=== PATIENT | male | born 1965 | race Caucasian/White ===

== ENCOUNTER → 2016-07-21 | Outpatient (CLI) | payer OTHER ==
[~2016-07-21] VITALS: Ht 182.9 cm; Wt 103.0 kg
[~2016-07-21] MED LIST: ASPIR 8181 M1 PO; FLOMAX0.4 MG PO; HYDROCODON-ACE1 EAC5 PO; HYDROCODONE-AP1 EAC6 PO; KEFLEX500 MG PO; MOBIC15 MG PO; PENTASA500 MG PO; PENTOXIFYLLINE400 MG PO; ROBAXIN 750 MG750 M1 PO
--- NOTE | ~2016-07-21 | HPC ---
[facility] [place] [address] PAIN MANAGEMENT CONSULTATION Name: KAUSHIK MCDERMOTT Maninder Room #: REG JOSE Salgado#: [id number] Admission: 07/21/16 Attend Phys: Romaine Richey MD Discharge: Date of : 65 Report #: [id number] THIS REPORT FOR: //name// CC: Maneul Richey DATE OF SERVICE: 07/21/2016 Followup visit for low back pain, spondylitic. No evidence of radiculopathy. 15 minute consultation. The patient returns to pain clinic today to discuss his pain. He has had a couple of weeks of bad pain, but when he made his appointment, this pain is now improving. This is a pretty typical for him. He has episodes of pain that come and go. When the pain is severe, he has been taking multiple doses of ibuprofen, perhaps over 2000 mg a day. This is concerning because he is also on meloxicam perhaps even more concerning because he also has a history of Crohn's disease. His consultation today was spent mostly discussing medication, but we also discussed the importance of exercise and managing chronic back pain. The patient reports he has chronic prostatitis and for that reason, he was placed on meloxicam. He has noticed that this does provide some relief for his pain, but not consistently that is why he has been adding the second nonsteroidal anti-inflammatory drugs. His Crohn's disease fortunately is not flared with the multiple doses of nonsteroidal anti-inflammatory drugs. He has been doing reasonably well with that, although he has frequent diarrhea. This has also been a problem associated with his prostatitis. MEDICATIONS: 81 mg aspirin per day, pentoxifylline 400 mg daily, meloxicam 15 mg daily, Flomax 0.4 mg q. 24 hours, Pentasa 500 mg daily. ALLERGIES: None. PHYSICAL EXAMINATION: GENERAL: He is a pleasant 51-year-old outgoing. VITAL SIGNS: His blood pressure 128/91. BMI is 30.8. MUSCULOSKELETAL: He is able to move from sitting to standing position and ambulate without difficulty, has mild pain with forward flexion and some increasing pain with extension, suggesting a facet mechanism. No pain in his legs with any maneuvers. No radiculopathy. IMPRESSION: 1. Low back pain without radiculopathy, spondylitic likely due to facet arthropathy. 2. Crohn's disease. 3. [place] [address] PAIN MANAGEMENT CONSULTATION Name: KAUSHIK MCDERMOTT Room #: REG JOSE Salgado#: [id number] Admission: 07/21/16 Attend Phys: Romaine Richey MD Discharge: Date of : 65 Report #: [id number] 4. Hypertension. RECOMMENDATIONS: Long discussion today about the use of meloxicam and the use of ibuprofen in conjunction. This is dangerous for any patient certainly something should be careful with this Crohn's disease, made it clear that he identifies all medications before taking them and understands the class risk concerns for these medications, particularly GI, renal and cardiac issues associated with the anti-inflammatories. In the past he used a small amount of hydrocodone when the pain is severe. He does not take it on a regular basis and has been able to shorten the episodes of pain by taking 1 or 2 hydrocodone. Denies any significant side effects. We discussed the use of these medicines and today's with the opioid crisis, the importance of safeguarding all medications. I can provide these or Dr. Dsouza. I am not really that worried about the medication given the fact that he uses no more than 1 tablet every few days on average and when his pain is not bothering, he does not take them at all. Nonetheless, he should be cautious about using them and having been prescribed by more than 1 physician and make sure that he communicate this with Dr. Dsouza at his next office visit. Prescription for 60 hydrocodone 10/325 tablets was provided under the terms of verbal agreement. Followup visit planned as needed. He does need an injection today. By: [id number] Romaine Richey MD /nt
[2016-07-21 12:49] VITALS: BP 128/91
== END | disposition home or self-care (01) ==
LOC: PAIN 07:05
DX: M47.816 Spondylosis without myelopathy or radiculopathy, lumbar region (principal); K50.90 Crohn's disease, unspecified, without complications; N41.9 Inflammatory disease of prostate, unspecified; I10 Essential (primary) hypertension

== ENCOUNTER → 2017-06-08 | Outpatient (CLI) | payer OTHER ==
[~2017-06-08] VITALS: Ht 182.9 cm; Wt 104.3 kg
[~2017-06-08] MED LIST changes: +CELEBREX 200 M200 MG PO; +DOXYCYCLINE 10100 MG PO
--- NOTE | ~2017-06-08 | HPC ---
[facility] [place] [address] [place] [address] PAIN MANAGEMENT CONSULTATION Name: KAUSHIK MCDERMOTT Maninder Room #: REG JOSE Salgado#: [id number] Admission: 06/08/17 Attend Phys: Romaine Richey MD Discharge: Date of : 65 Report #: [id number] THIS REPORT FOR: //name// CC: Manuel Richey DATE OF SERVICE: 06/08/2017 Followup visit for 25-minute consultation regarding chronic pain. The patient returns to the pain clinic today for consultation. I also provided a very, very low amount of hydrocodone for him. He received a prescription for 60 tablets of hydrocodone last July. He is out. He uses it sparingly when the pain is severe and does not have intention to use opioids as a daily basis for his chronic pain. He has chronic prostatitis and that is his primary problem. He has been placed on nonsteroidal anti-inflammatory drugs for that. However, it is important to realize that he also has Crohn's disease. It is possible as I discussed at last visit, he may flare with the traditional NSAID. I have recommended a year ago that you consider the use of something other than meloxicam or ibuprofen. year ago, he had been using both at the same time. Dr. Murillo is helping him with his chronic prostatitis and has him on intermittent antibiotics. He was on a long-term Cipro, decided to go off of that and has recently been started on doxycycline, once again is taking 2 tablets daily. He is also taking tamsulosin and Pentasa. His pain is typically around a 3. When it becomes more severe, he will often time use a 1/2 to 1 tablet of hydrocodone. Note again that he probably uses no more than 5 tablets per month. His morphine milligram equivalency equals 3-4. The patient also has back pain, which is likely spondylitic due to facet arthropathy. Exercise seems to help this and occasionally he takes one of his hydrocodone when the back pain is severe. He expressed some concern and despair about his current pain, worrying that he will continue to have pain forever and that it will naturally get worse. I have given him words of encouragement. We do have patients become better over time, so it is not a given that he will see further decline. PHYSICAL EXAMINATION: He is a pleasant, outgoing 52-year-old. His blood pressure is 146/88, pulse is 80, respirations 14. His BMI is 31.2. He has gained a slight amount of weight in the last year. He is able to easily move from sitting to standing position, walks without difficulty. He has some pain across his low back with flexion and extension, worse with extension. No pain [facility] [address] [place] [address] PAIN MANAGEMENT CONSULTATION Name: KAUSHIK MCDERMOTT Room #: REG JOSE Salgado#: [id number] Admission: 06/08/17 Attend Phys: Romaine Richey MD Discharge: Date of : 65 Report #: [id number] in the legs at this time. He has tenderness and pain over the pelvis and just above the symphysis pubis. A rectal exam and other exam of the prostate were deferred to Dr. Murillo. IMPRESSION: 1. Chronic prostatitis. 2. Crohn's disease. 3. Low back pain without radiculopathy with spondylosis. 4. Hypertension. RECOMMENDATIONS: I will renew his hydrocodone. I will be happy to see him back with consultation at any time. Dr. Dsouza can also prescribed his medicine and was informed that should it more difficult to get in, I am sure that Dr. Dsouza would do so. <ELECTRONICALLY SIGNED> By: Romaine Richey MD 06/12/17 1408 164 56 Romaine Richey MD /nt
[2017-06-08 11:37] VITALS: BP 146/88
== END ==
LOC: PAIN 07:25
DX: G89.29 Other chronic pain (principal); N41.9 Inflammatory disease of prostate, unspecified; K50.90 Crohn's disease, unspecified, without complications; M47.896 Other spondylosis, lumbar region; I10 Essential (primary) hypertension

== ENCOUNTER → 2018-09-20 | Outpatient (CLI) | payer OTHER ==
[~2018-09-20] VITALS: Ht 185.4 cm; Wt 101.1 kg
[~2018-09-20] MED LIST changes: +METHOCARBAMOL500 M2 PO; +XANAX 0.5 MG0.5 MG PO
--- NOTE | ~2018-09-20 | HPC ---
[facility] [place] [address] PAIN MANAGEMENT CONSULTATION Name: KAUSHIK MCDERMOTT Room #: REG JOSE Miley.#: [id number] Admission: 09/20/18 ������������������ Attend Phys: Romaine Richey MD Discharge: ������������������ Date of : 65 Report #: [id number] THIS REPORT FOR: //name// CC: Manuel Richey DATE OF SERVICE: 09/20/2018 Followup visit for chronic pain. The patient is in the pain clinic today for a 28-79-abpals consultation regarding chronic pain issues. He is doing well. Since I first saw him a couple of years ago, he has seen good benefits from wellness behaviors. He has watched carefully his carbohydrates and processed sugars. He is exercising, lost some weight. All of this has contributed to improvements in his chronic low back pain secondary to spondylosis as well as pain from his chronic prostatitis. This has diminished significantly in the last year. He thinks riding a bicycle may be one of the causes that triggers. I provided him with a prescription for hydrocodone 10/325, sixty total tablets in 2017 and then once again in 2018. One prescription for 60 tablets has lasted him over a year. He has an interesting response to the medication. When his pain is severe and he takes it, it works marvelously, if Rx tends beyond the expected pharma code dynamic profile. He says when his pain is improved with the opioid, sometimes he is better for many days in a row without pain at all. This may be from some sort of relaxation and muscle spasm. At any rate, he uses it so infrequently that I feel quite safe for him to continue it in this regard. He only uses it when needed. He denies side effects and carefully safeguards his medication. Even though he does not use much, he needs to make sure that the 60 tablets that we provided with are kept away from others. He understands the opioid crisis. We discussed it today. We checked his prescription in drug monitoring information. There are no unexpected entries. I reviewed his MRI for him once again which shows mostly just some mild foraminal disk bulging, left greater than right at L3-L4 and also some bulging at L4-L5. For the most part, his spine is fairly straightforward and normal for age. PHYSICAL EXAMINATION: GENERAL: He is a very pleasant, outgoing gentleman. VITAL SIGNS: Blood pressure 139/87, heart rate 77, respirations 16. He is 6 feet 1 inch, 228 pounds. BMI down from last year to 29.4. He was over 30 at his visit last year. Moves easily from sitting to standing position, [place] [address] PAIN MANAGEMENT CONSULTATION Name: BERTHAIVANIAKAUSHIK GRANADOS Room #: REG JOSE Salgado#: [id number] Admission: 09/20/18 ������������������ Attend Phys: Romaine Richey MD Discharge: ������������������ Date of : 65 Report #: [id number] without difficulty. Some tenderness across the lumbosacral segment, but this is mild, scoring it as a 2-3 at maximum. IMPRESSION: 1. Chronic intractable low back pain with spondylosis. 2. Chronic prostatitis, improved. 3. Crohn disease. 4. Hypertension. PLAN: I renewed his hydrocodone for him #60 tablets. I will be glad to see him intermittently for this or he can certainly receive it from his primary care physician, Dr. Dsouza. ��������������������������������������������� ���������������������������������������� By: ��������������������������������������������� 1219 1300 Romaine Richey MD /nt
[2018-09-20 10:39] VITALS: BP 139/87
--- NOTE | 2018-09-20 10:52 | NUR ---
Pain Clinic Assessment: 1. History of Osteoarthritis: History of Rheumatoid Arthritis: 2. Height: 6 ft. 1 in. 185.4 cm. Weight: 222.8 lb. oz. 101.062 kg. Patient's BMI: 29.4 3. Vital Signs: BP: 139/87 Pulse: 77 Resp: 16 Temp: 02 Sat: 98 ECG Mon: 4. Pain Intensity: 3 5. Fall Risk: Dizziness: N Needs help standing or walking: N Fallen in the last 3 months: Y Fall risk comments: 6. Patient on Blood Thinner: None 7. History of Hypertension: N 8. Opioid Therapy greater than 6 weeks: N Opiate Contract Signed: 9. Risk Assessment Tool Provided: 10. Functional Assessment Tool: 11. Recreational Drug Use: Never Drug Type: Tobacco Use: Never Smoker Tobacco Type: Amount or Packs/day: How Many Years: Alcohol Use: Yes Frequency: Quant:
== END ==
LOC: PAIN 10:12
DX: M47.816 Spondylosis without myelopathy or radiculopathy, lumbar region (principal); N41.1 Chronic prostatitis; I10 Essential (primary) hypertension; K50.90 Crohn's disease, unspecified, without complications

== ENCOUNTER → 2019-05-20 | Outpatient (CLI) | payer OTHER ==
[~2019-05-20] VITALS: Ht 182.9 cm; Wt 106.1 kg
[2019-05-20 12:30] VITALS: BP 141/89
--- NOTE | 2019-05-20 12:39 | NUR ---
Pain Clinic Assessment: 1. History of Osteoarthritis: Left Upper Extremity Right Upper Extremity *SPINE History of Rheumatoid Arthritis: 2. Height: 6 ft. 0 in. 182.9 cm. Weight: 234.0 lb. oz. 106.142 kg. Patient's BMI: 31.7 3. Vital Signs: BP: 141/89 Pulse: 72 Resp: 18 Temp: 02 Sat: 98 ECG Mon: 4. Pain Intensity: 3 5. Fall Risk: Dizziness: N Needs help standing or walking: N Fallen in the last 3 months: N Fall risk comments: 6. Patient on Blood Thinner: None 7. History of Hypertension: N 8. Opioid Therapy greater than 6 weeks: N Opiate Contract Signed: 9. Risk Assessment Tool Provided: LOW 10. Functional Assessment Tool: 11. Recreational Drug Use: Never Drug Type: Tobacco Use: Never Smoker Tobacco Type: Amount or Packs/day: How Many Years: Alcohol Use: Yes Frequency: Weekly Quant: 3 DRINKS
--- NOTE | 2019-05-21 09:00 | HPC ---
[facility] [place] [address] PAIN MANAGEMENT CONSULTATION Name: KAUSHIK MCDERMOTT [id number] Admission: 05/20/19 Attend Phys: Edilia Dobbins Discharge: Date of : 65 Report #: [id number] THIS REPORT FOR: cc: Manuel Dsouza MD, Neal A. MD Hocker,Edilia SCHULTZ ~ CC: Edilia Dsouza DATE OF SERVICE: 05/20/2019 CHIEF COMPLAINT: Low back pain. HISTORY OF PRESENT ILLNESS: This is a very pleasant 54-year-old gentleman who returns to the pain clinic today for a refill of his medications. He is reporting that he has been doing quite well with occasional hydrocodone to help treat his ongoing low back pain. He was last seen here in September. He reports he would have lasted slightly longer, but he had a hernia repair last in April and that required him to take some additional pain pills. He reports that normally he will take his pills when he is going to be active outside. It is helpful in controlling his low back pain. Today, he is reporting his pain score of 3/10. He feels that the TENS unit and heating pad are also beneficial aside from his pain pills. The patient reports that he started taking Celebrex for inflammation that he has been able to tolerate that quite well despite his Crohn's disease and not having any GI symptoms in regards to that medicine. ALLERGIES: No known drug allergies. CURRENT LIST OF MEDICATIONS: Included hydrocodone p.r.n., alprazolam, methocarbamol, Celebrex and Pentasa. PQRS: 1. He has history of osteoarthritis in his upper and lower extremities and his spine. He denies any rheumatoid arthritis. 2. Height is 6 feet, weight is 234, BMI is 31. 3. Vital signs: Blood pressure 141/89, pulse is 72, respirations 18, oxygen sat is 98. 4. Pain score is 3/10. 5. Denies dizziness, does not need help walking or standing, has not fallen in the last 3 months. 6. The patient is not on any blood thinners or medicine for hypertension. 7. Opioid therapy is greater than 6 weeks, takes these very sparingly. His risk assessment tool is low. Functional assessment is 44/70. 8. Recreational drug use, he denies. He is not a smoker and occasionally [address] [address] PAIN MANAGEMENT CONSULTATION Name: KAUSHIK MCDERMOTT Maninder Room #: REG [facility]#: [id number] Admission: 05/20/19 Attend Phys: Edilia Dobbins Discharge: Date of : 65 Report #: [id number] drinks alcohol. According to the prescription monitoring system, the patient filled appropriately. He does not take these medicines on a daily basis. His morphine mEq is 0-10. PHYSICAL EXAMINATION: GENERAL: This is alert and orientated, very pleasant 54-year-old gentleman who appears his stated age, placing his current pain score at 3/10 today. HEENT: Normocephalic, atraumatic. Extraocular eye muscles are intact. Mucous membranes are moist. MUSCULOSKELETAL: He moves from sitting to standing without any difficulty. He walks with a normal gait. He has tenderness in his lumbosacral segment with no radicular symptoms today. Lower extremity strength judged to be 5/5 in all major muscle groups. IMPRESSION: 1. Chronic intractable low back pain with spondylosis. 2. Crohn's disease. 3. Hypertension. PLAN: 1. We discussed treatment options with the patient today. The patient feels that the Celebrex has been beneficial in helping him with some anti-inflammatory issues. He is getting up from his primary care doctor. He does not have any GI discomfort by taking this, but I did encourage him to take this with food and not on an empty stomach. 2. The patient finds the hydrocodone 10/325 very beneficial when he is going to be active. He does not take these on a daily basis. We will have Dr. Romaine Richey electronically send a prescription for 60 tablets to his pharmacy. I did explain to the patient that they may only fill a 7-day supply, so to check his medicine prior to picking it up since he has not filled this medicine since September. 3. I also discussed with the patient that Dr. Dsouza who is his primary care doctor, maybe willing to write for this medication for him since he does take it on a very sparingly basis. He may return to our clinic if Dr. Dsouza is not willing to write for this, but he takes very low dose and we will see him back if need be. 4. The patient is seen in collaboration with Dr. Romaine Richey. <ELECTRONICALLY SIGNED> By: Edilia Dobbins 05/21/19 0900 1404 [id number] Edilia Dobbins /[place]
== END ==
LOC: PAIN 06:47
DX: M47.816 Spondylosis without myelopathy or radiculopathy, lumbar region (principal); G89.29 Other chronic pain; K50.90 Crohn's disease, unspecified, without complications; I10 Essential (primary) hypertension; Z68.31 Body mass index [BMI] 31.0-31.9, adult; Z79.899 Other long term (current) drug therapy

== ENCOUNTER → 2020-01-14 | Outpatient (CLI) | payer OTHER | LOC: CAT 10:04 | PROVIDERS: ATTEND Family Medicine | DX: Z13.6 Encounter for screening for cardiovascular disorders (principal); I25.10 Atherosclerotic heart disease of native coronary artery without angina pectoris; E78.00 Pure hypercholesterolemia, unspecified ==